=== PATIENT | female | born 1995 | race Caucasian/White ===

== ENCOUNTER 2021-05-16 06:26 | Inpatient (IN) | payer OTHER ==
[~2021-05-16] VITALS: Ht 162.6 cm; Wt 96.4 kg
[2021-05-16] VITALS (38 sets, daily range): BP systolic 102–144; BP diastolic 55–89; PULSE 74–193; TEMP 97.6–98.5
[~2021-05-16 06:26] MED LIST: APRI 0.15 MG-0.1 TAB PO; FLAGYL500 MG PO; ZOFRAN ODT4 MG PO
[2021-05-16] MEDS ORDERED: PRENATAL TABLET PO (07:25)
[2021-05-16] MEDS ORDERED: CLARITIN 1010 MG/TAB (07:32)
[2021-05-16 08:19] LABS: HEMOGLOBIN 11.7 g/dl (12.5-16.0); MEAN CELL VOLUME 84 fl (80.0-100.0); MEAN CORPUSCULAR HEMOGLOBIN 27 pg (27.0-31.0); MEAN CORPUSCULAR HGB CONC 33 g/dl (33.0-37.0); MEAN PLATELET VOLUME 11.5 fl (7.4-10.4); PLATELET COUNT 228 K/mm3 (130-400); REDCELL DISTRIBUTION WIDTH-CV 13.2 % (11.5-14.5)
[2021-05-16 08:21] LABS: HEMATOCRIT 35.9 % (37.0-47.0)
[2021-05-16 09:14] LABS: BAND 27 % (0-10); EOSINOPHIL 2 % (0-4); LYMPHOCYTE 17 % (20.0-51.0); METAMYELOCYTE 3 % (0-0); MYELOCYTE 1 % (0-0); NEUTROPHILS 45 % (42.0-75.2); PLATELET ESTIMATE NORMAL (NORMAL)
[2021-05-16 09:15] LABS: HYPOCHROMIA 1+
[2021-05-16] MEDS ORDERED: MOTRIN 800800 MG/TAB PO (19:05)
[2021-05-17 01:00] VITALS: BP 120/68; PULSE 90; TEMP 98
[2021-05-17 05:00] VITALS: BP 126/78; PULSE 88; TEMP 98
[2021-05-17 07:35] VITALS: BP 122/78; PULSE 82; TEMP 97.9
[2021-05-17 12:00] VITALS: BP 124/78; PULSE 87; TEMP 98.4
[2021-05-19 08:09] LABS: PATHOLOGY DIFF REVIEW OK
== END 2021-05-17 15:35 | disposition home or self-care (01) | DRG 807 ==
LOC: LDR 06:26 → OB 10:50
PROVIDERS: ADMIT Obstetrics & Gynecology
PROC: 10E0XZZ Delivery of Products of Conception, External Approach (ICD-10-PCS; principal; 2021-05-16)
PROC: 0KQM0ZZ Repair Perineum Muscle, Open Approach (ICD-10-PCS; 2021-05-16)
PROC: 10907ZC Drainage of Amniotic Fluid, Therapeutic from Products of Conception, Via Natural or Artificial Opening (ICD-10-PCS; 2021-05-16)
PROC: 3E033VJ Introduction of Other Hormone into Peripheral Vein, Percutaneous Approach (ICD-10-PCS; 2021-05-16)
DX: O66.0 Obstructed labor due to shoulder dystocia (principal); Z37.0 Single live birth; O70.1 Second degree perineal laceration during delivery; Z3A.39 39 weeks gestation of pregnancy; Z86.16 Personal history of COVID-19
CPT/HCPCS: J2590; J7120